=== PATIENT | male | born 1995 | race Caucasian/White ===

== ENCOUNTER 2021-02-17 11:36 | Emergency (ER) | payer BC, MEDICAID, OTHER ==
[~2021-02-17] VITALS: Ht 185.4 cm; Wt 77.3 kg
[2021-02-17 12:25] VITALS: BP 136/88
[2021-02-17] MEDS ORDERED: PENI500T2 PO (12:42)
== END 2021-02-17 12:50 | disposition home or self-care (01) ==
LOC: ER 11:37
DX: K05.219 Aggressive periodontitis, localized, unspecified severity (principal); K05.10 Chronic gingivitis, plaque induced; K08.89 Other specified disorders of teeth and supporting structures; Q82.4 Ectodermal dysplasia (anhidrotic); Z79.2 Long term (current) use of antibiotics
CPT/HCPCS: 99283

== ENCOUNTER 2023-05-01 07:51 | Emergency (ER) | payer MEDICAID ==
[~2023-05-01] VITALS: Ht 185.4 cm; Wt 68.9 kg
[2023-05-01 08:02] VITALS: BP 127/77; PULSE 110; RESP 19; TEMP 98; O2SAT 99
[2023-05-01] MEDS ORDERED: AMOX-117 PO (08:54)
[2023-05-01] MEDS ORDERED: IBUP-1984 PO (08:54)
[2023-05-01] MEDS: dexamethasone sod phosphate 10mg/ml inj PO STA (08:56)
== END 2023-05-01 09:08 | disposition home or self-care (01) ==
LOC: ER 07:51
DX: J02.0 Streptococcal pharyngitis (principal); Z79.899 Other long term (current) drug therapy
CPT/HCPCS: 99283; J1100

== ENCOUNTER 2023-06-03 06:01 | Emergency (ER) | payer MEDICAID ==
[~2023-06-03] VITALS: Ht 185.4 cm; Wt 67.8 kg
[2023-06-03 06:40] VITALS: BP 112/70; PULSE 112; RESP 18; TEMP 100.4; O2SAT 99
[2023-06-03] MEDS ORDERED: AMOX-580 PO (07:48)
[2023-06-03] MEDS: dexamethasone sod phosphate 10mg/ml inj PO STA (07:59)
[2023-06-03] MEDS: amox tr/potassium clavulanate 875/125mg TAB PO ONE (07:59)
== END 2023-06-03 08:04 | disposition home or self-care (01) ==
LOC: ER 06:01
DX: J02.9 Acute pharyngitis, unspecified (principal)
CPT/HCPCS: 99283; J1100